=== PATIENT | female | born 1975 | race Two or more races ===

== ENCOUNTER → 2023-10-27 | Outpatient (CLI) | payer BC | END | disposition home or self-care (01) | LOC: LAB 15:22 | PROVIDERS: ATTEND Nurse Practitioner Family | DX: N39.0 Urinary tract infection, site not specified (principal) | CPT/HCPCS: 87086 ==

== ENCOUNTER 2024-08-13 01:08 | Inpatient (IN) | payer BC ==
[~2024-08-13] VITALS: Ht 154.9 cm; Wt 85.9 kg
[2024-08-13 01:43] LABS: Urine Bacteria MOD /hpf (None Seen); Urine Blood Negative /uL (Negative); Urine Clarity Clear (Clear); Urine Color Light-Yellow (Yellow); Urine Mucus FEW (None Seen); Urine Protein, UAD Negative (Negative); Urine Specific Gravity 1.023 (1.001-1.035); Urine Urobilinogen Normal (Negative); Urine WBC 32 /hpf (0 - 5); Urine pH 5.5 (5.0-9.0)
[2024-08-13 02:01] LABS: Basophils # (auto) 0.1 10 ^3/uL (0-0.2); Basophils % (auto) 0.5 % (0.0-2.0); Eosinophils # (auto) 0.5 10 ^3/uL (0-0.8); Eosinophils % (auto) 3.1 % (0.0-7.0); Hematocrit 38.8 % (36.0-46.0); Hemoglobin 13.8 g/dL (12.2-16.2); Lymphocytes # (auto) 2.7 10 ^3/uL (0.4-5.4); Mean Corpuscular Hemoglobin 31.6 pg (28.0-32.0); Mean Corpuscular Hgb Conc. 35.4 g/dL (32.0-36.0); Mean Corpuscular Volume 89.2 fL (80.0-100.0); Monocytes # (auto) 0.6 10 ^3/uL (0-1.3); Monocytes % (auto) 3.7 % (0.0-12.0); Neutrophils # (auto) 12.2 10 ^3/uL (1.6-8.6); Neutrophils % (auto) 75.7 % (37.0-80.0); Platelet Count (auto) 283 10^3/uL (140-450); Red Blood Cells 4.35 10^6/uL (4.0-5.20); Red Cell Distribution Width 13.6 % (11.8-14.3); White Blood Cell 16.1 10^3/uL (4.4-10.8)
[2024-08-13 02:09] LABS: Chloride 106 mmol/L (98-107); Potassium 3.7 mmol/L (3.5-5.1); Sodium 138 mmol/L (136-145)
[2024-08-13 02:10] LABS: Anion Gap 6 (5-15); Calcium 9.7 mg/dL (8.7-10.4); Carbon Dioxide 26 mmol/L (20-30)
[2024-08-13 02:15] LABS: BUN/Creatinine Ratio 15.4 (10.0-20.0); Blood Urea Nitrogen 12 mg/dL (9-23); Glucose 118 mg/dL (74-106); Lipase 55 U/L (12-53)
[2024-08-13] MEDS ORDERED: ZOFR4T PO (02:34)
[2024-08-13] MEDS ORDERED: ACET500T58 PO (02:34)
[2024-08-13] MEDS ORDERED: NITR-87 PO (02:34)
[2024-08-13] MEDS: cefTRIAXone SOD 1,000 MG VL IM ONE (02:53)
[2024-08-13] MEDS: ONDANSETRON ODT 4 MG TAB PO ONE (02:53)
[2024-08-13] MEDS: HYDROcodone-ACET 10/325MG TAB PO ONE (02:53)
[2024-08-13] MEDS ORDERED: ONDANSETRON HCL 4 MG/2 ML VIAL IV PRN (07:00)
[2024-08-13] MEDS ORDERED: NITROGLYCERIN 0.4 MG SL TAB SL PRN (07:00)
[2024-08-13] MEDS ORDERED: MORPHINE SULFATE INJ 2 MG/ml SYRG IV PRN (07:00)
[2024-08-13 07:07] VITALS: PULSE 63; RESP 16; O2SAT 98
[2024-08-13] MEDS: metroNIDAZOLE 500MG/100ML 100 ML IV ONE (07:18)
[2024-08-13 07:29] LABS: Basophils # (auto) 0.1 10 ^3/uL (0-0.2); Basophils % (auto) 0.4 % (0.0-2.0); Eosinophils # (auto) 0.1 10 ^3/uL (0-0.8); Eosinophils % (auto) 0.5 % (0.0-7.0); Hematocrit 40.6 % (36.0-46.0); Lymphocytes % (auto) 16.1 % (10.0-50.0); Mean Corpuscular Hemoglobin 30.9 pg (28.0-32.0); Mean Corpuscular Hgb Conc. 34.4 g/dL (32.0-36.0); Mean Corpuscular Volume 89.8 fL (80.0-100.0); Monocytes # (auto) 0.4 10 ^3/uL (0-1.3); Monocytes % (auto) 2.9 % (0.0-12.0); Neutrophils # (auto) 9.9 10 ^3/uL (1.6-8.6); Neutrophils % (auto) 80.1 % (37.0-80.0); Nucleated Red Blood Cells % 0.2 %; Platelet Count (auto) 287 10^3/uL (140-450); Red Blood Cells 4.52 10^6/uL (4.0-5.20); Red Cell Distribution Width 13.2 % (11.8-14.3); White Blood Cell 12.3 10^3/uL (4.4-10.8)
[2024-08-13 07:45] LABS: Alanine Aminotransferase 18 U/L (7-40); Albumin 4.9 g/dL (3.2-4.8); Alkaline Phosphatase 79 U/L (46-116); Anion Gap 9 (5-15); Aspartate Aminotransferase 12 U/L (13-40); BUN/Creatinine Ratio 16.7 (10.0-20.0); Bilirubin, Total 0.4 mg/dL (0.2-1.0); Blood Urea Nitrogen 11 mg/dL (9-23); Calcium 9.8 mg/dL (8.7-10.4); Carbon Dioxide 24 mmol/L (20-30); Chloride 105 mmol/L (98-107); Glucose 108 mg/dL (74-106); Sodium 138 mmol/L (136-145); Total Protein 7.8 g/dL (5.7-8.2)
[2024-08-13] MEDS: SODIUM CHLORIDE 0.9% 1,000 ML IV SCH (08:00)
[2024-08-13] MEDS: metroNIDAZOLE 500MG/100ML 100 ML IV SCH (14:46)
[2024-08-13] MEDS: HYDROcodone-ACET 5/325MG TAB PO PRN (17:56)
[2024-08-13 19:05] VITALS: PULSE 73; RESP 16; O2SAT 98
[2024-08-13] MEDS: MORPHINE SULFATE INJ 2 MG/ml SYRG IV PRN (23:52)
[2024-08-14] VITALS (11 sets, daily range): BP systolic 97–125; BP diastolic 54–85; PULSE 63–96; RESP 16–19; TEMP 97.6–98.7; O2SAT 94–100
[2024-08-14 02:42] LABS: INR 1.05 (0.9-1.15); Partial Thromboplastin Time 25.8 SEC (24.5-34.5); Prothrombin Time 11.1 sec (9.3-11.8)
[2024-08-14 07:17] LABS: Basophils # (auto) 0.1 10 ^3/uL (0-0.2); Basophils % (auto) 0.6 % (0.0-2.0); Eosinophils # (auto) 0.4 10 ^3/uL (0-0.8); Eosinophils % (auto) 4.2 % (0.0-7.0); Hematocrit 33.9 % (36.0-46.0); Lymphocytes # (auto) 2.6 10 ^3/uL (0.4-5.4); Lymphocytes % (auto) 25.7 % (10.0-50.0); Mean Corpuscular Hemoglobin 31.8 pg (28.0-32.0); Mean Corpuscular Hgb Conc. 35.5 g/dL (32.0-36.0); Mean Corpuscular Volume 89.5 fL (80.0-100.0); Monocytes # (auto) 0.5 10 ^3/uL (0-1.3); Monocytes % (auto) 5.1 % (0.0-12.0); Neutrophils # (auto) 6.6 10 ^3/uL (1.6-8.6); Neutrophils % (auto) 64.4 % (37.0-80.0); Nucleated Red Blood Cells % 0.1 %; Platelet Count (auto) 229 10^3/uL (140-450); Red Blood Cells 3.79 10^6/uL (4.0-5.20); Red Cell Distribution Width 13.4 % (11.8-14.3); White Blood Cell 10.2 10^3/uL (4.4-10.8)
[2024-08-14 07:24] LABS: INR 1.05 (0.9-1.15); Partial Thromboplastin Time 26.5 SEC (24.5-34.5); Prothrombin Time 11.1 sec (9.3-11.8)
[2024-08-14 07:42] LABS: Alanine Aminotransferase 17 U/L (7-40); Albumin 3.7 g/dL (3.2-4.8); Alkaline Phosphatase 63 U/L (46-116); Anion Gap 9 (5-15); Aspartate Aminotransferase 15 U/L (13-40); BUN/Creatinine Ratio 14.9 (10.0-20.0); Blood Urea Nitrogen 10 mg/dL (9-23); Calcium 8.7 mg/dL (8.7-10.4); Carbon Dioxide 22 mmol/L (20-30); Chloride 108 mmol/L (98-107); Glucose 92 mg/dL (74-106); Potassium 3.8 mmol/L (3.5-5.1); Sodium 139 mmol/L (136-145)
[2024-08-14 07:43] LABS: Bilirubin, Total 0.5 mg/dL (0.2-1.0); Total Protein 5.9 g/dL (5.7-8.2)
[2024-08-14] MEDS: cefTRIAXone 1GM/50ML D5W 50 ML IV SCH (08:42)
[2024-08-14] MEDS ORDERED: fentaNYL CITRATE 100 MCG/2 ML VL ONE (08:52)
[2024-08-14] MEDS ORDERED: MEPERIDINE HCL (50 MG/ML) 1 ML VIAL ONE (08:52)
[2024-08-14] MEDS ORDERED: ETOMIDATE (2MG/ML) 20ML VIAL IV ONE (08:56)
[2024-08-14] MEDS ORDERED: ROCURONIUM 10MG/ML 10ML VIAL IV ONE (09:37)
[2024-08-14] MEDS ORDERED: DexAMETHasone SOD PHOS 10MG/1ML VIAL INJ ONE (09:54)
[2024-08-14] MEDS ORDERED: ONDANSETRON HCL 4 MG/2 ML VIAL ONE (09:54)
[2024-08-14] MEDS ORDERED: SUGAMMADEX 200mg/2ml Vial (100MG/ML) IV ONE (10:19)
[2024-08-14] MEDS: LIDOCAINE W/ EPINEPHRINE 1% 20ML VIAL ONE (10:25)
[2024-08-14] MEDS ORDERED: MEPERIDINE HCL (25 MG/ML) 1ML VIAL IV PRN (10:45)
[2024-08-14] MEDS ORDERED: HYDROmorphone HCL 2 MG/ML VL/or syr IV PRN (10:45)
[2024-08-14] MEDS ORDERED: ACETAMINOPHEN IV 1000 MG/100ML (10MG/ML) IV PRN (10:45)
[2024-08-14] MEDS: ONDANSETRON HCL 4 MG/2 ML VIAL IV ONE (11:14)
[2024-08-14] MEDS ORDERED: DOCU-265 PO (17:25)
[2024-08-14] MEDS ORDERED: CEPH250C PO (17:25)
[2024-08-14] MEDS ORDERED: NAP500T PO (17:25)
[2024-08-14] MEDS: DOCUSATE SOD 100 MG CAP PO PRN (17:53)
[2024-08-15 01:00] VITALS: BP 97/54; PULSE 66; RESP 18; TEMP 98; O2SAT 94
[2024-08-15 05:00] VITALS: BP 96/63; PULSE 66; RESP 18; TEMP 97.9; O2SAT 97
[2024-08-15] MEDS: ceFAZolin 2 GM/D5W100ml 100 ML IV ONE (07:23)
[2024-08-15] MEDS: SUCCINYLCHOLINE CHLORIDE 20 MG/ML 10ML VIAL IV ONE (07:24)
[2024-08-15 08:00] VITALS: PULSE 60; PULSE 70; RESP 16; O2SAT 92
[2024-08-15] MEDS: ACETAMINOPHEN 325 MG TAB PO PRN (08:26)
[2024-08-15 08:41] VITALS: BP 109/67; PULSE 70; RESP 16; TEMP 98.5; O2SAT 92
== END 2024-08-15 11:07 | disposition home or self-care (01) | DRG 418 ==
LOC: ER 01:08 → TELE 07:03 → TELE-WESTW 23:30
PROVIDERS: ADMIT Nurse Practitioner Family; ATTEND Nurse Practitioner Acute Care
PROC: 0FT44ZZ Resection of Gallbladder, Percutaneous Endoscopic Approach (ICD-10-PCS; principal; 2024-08-14 09:24)
DX: K81.0 Acute cholecystitis (principal); N39.0 Urinary tract infection, site not specified; R74.8 Abnormal levels of other serum enzymes; Z91.012 Allergy to eggs; Z90.711 Acquired absence of uterus with remaining cervical stump
CPT/HCPCS: 36415; 74176; 80048; 80053; 81001; 83690; 84702; 85025; 85610; 85730; 86850; 86900; 86901; 87086; 87088; 87186; G0378; J0131; J0330; J0696; J1100; J2405; J3490; Q0162